=== PATIENT | male | born 1965 | race Two or more races ===

== ENCOUNTER → 2016-12-03 09:17 | Emergency (ER) | payer SELFPAY ==
[2016-12-03 09:22] VITALS: BP 108/70
--- NOTE | 2016-12-03 10:16 | ED ---
- HPI Summary HPI Summary: Patient presents one day after having a drop of blood splash into his right eye while performing a . He flushed his eye with water after the exposure and has not vision issues. The patient has been tested for Hep C and B, as well as HIV. 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 Mechanism of Injury: splash Treatment INTERNET SECURITY SPECIALIST: Irrigation - Source Information HIV: No Hepatitis: No - Other Discussed Post-Exposure prophylaxis (PEP) for HIV: Declined Discussed PEP for Hepatitis-B: Declined Serologic Testing (HIV/HBV) Declined by Patient: Yes PMH/Surg Hx/FS Hx/Imm Hx Endocrine/Hematology History: Reports: Hx Thyroid Disease - HYPO Denies: Hx Diabetes Cardiovascular History: Denies: Hx Hypertension, Hx Pacemaker/ICD Musculoskeletal History: Denies: Hx Rheumatoid Arthritis, Hx Osteoporosis Sensory History: Denies: Hx Hearing Aid Psychiatric History: Denies: Hx Panic Disorder - Surgical History Surgery Procedure, Year, and Place: ARTHROSCOPIC RT KNEE Infectious Disease History: No Infectious Disease History: Denies: Traveled Outside the [place] in Last 30 Days - Family History Known Family History: Positive: None - Social History Occupation: Employed Full-time Lives: With Family Alcohol Use: None Substance Use Type: Reports: None Smoking Status (MU): Never Smoked Tobacco Review of Systems All Other Systems Reviewed And Are Negative: Yes Physical Exam Triage Information Reviewed: Yes Vital Signs On Initial Exam: Initial Vitals Temp Pulse Resp BP Pulse Ox 98.9 F 74 16 108/70 98 12/03/16 09:19 12/03/16 09:19 12/03/16 09:19 12/03/16 09:19 12/03/16 09:19 Vital Signs Reviewed: Yes Appearance: Positive: Well-Appearing, No Pain Distress, Well-Nourished Skin: Positive: Warm, Skin Color Reflects Adequate Perfusion, Dry, Soft Head/Face: Positive: Normal Head/Face Inspection Eyes: Positive: EOMI, REX, Conjunctiva Clear ENT: Positive: Hearing grossly normal Respiratory/Lung Sounds: Positive: Breath Sounds Present Cardiovascular: Positive: RRR Neurological: Positive: Sensory/Motor Intact, Alert, Oriented to Person Place, Time, NV Bundle Intact Distally Psychiatric: Positive: Affect/Mood Appropriate AVPU Assessment: Alert - Raman Coma Scale Coma Scale Total: 15 Diagnostics - Vital Signs Vital Signs Temp Pulse Resp BP Pulse Ox 12/03/16 09:19 98.9 F 74 16 108/70 98 - Laboratory Lab Statement: Any lab studies that have been ordered have been reviewed, and results considered in the medical decision making process. [place] Course/Dx - Diagnoses Provider Diagnoses: Employee exposure to body fluids Discharge - Discharge Plan Condition: Stable Disposition: HOME Referrals: Kellee Amado MD [Primary Care Provider] -
[2016-12-03 10:28] LABS: Rapid HIV INT CONT QC Line Present; Rapid HIV Kit Lot# F209005
== END | disposition home or self-care (01) ==
LOC: ED 09:17
DX: Z77.21 Contact with and (suspected) exposure to potentially hazardous body fluids (principal)
CPT/HCPCS: 36415; 86703; 86706; 86803; 87340; 99281